=== PATIENT | male | born 1965 | race Caucasian/White ===

== ENCOUNTER 2017-02-26 18:58 | Emergency (ER) | payer MEDICARE ==
[~2017-02-26] VITALS: Ht 175.3 cm; Wt 127.0 kg
[~2017-02-26 18:58] MED LIST: CRESTOR5 MG; NEURONTIN600 MG; NOVOLOG100 UNITS/; PRINIVIL20 MG
[2017-02-26 21:09] LABS: STREPTOCOCCUS GRP A ANTIGEN POSITIVE (NEGATIVE)
[2017-02-26 21:46] LABS: INFLUENZAE A&B ANTIGEN (RAPID) NEGATIVE (NEGATIVE)
--- NOTE | 2017-02-26 22:20 | Diagnostic Imaging Report ---
EXAMINATION: CHEST 2 VIEWS INDICATION: Fever, cough COMPARISON: None FINDINGS: TUBES and LINES: None. LUNGS: Lungs are well inflated. Lungs are clear. There is no evidence of pneumonia or pulmonary edema. PLEURA: No pleural effusion or pneumothorax. HEART AND MEDIASTINUM: The cardiomediastinal silhouette is unremarkable. BONES AND SOFT TISSUES: No acute osseous lesion. Soft tissues are unremarkable. UPPER ABDOMEN: No free air under the diaphragm. IMPRESSION: No acute thoracic abnormality. Signed by: Dr. Enrique Stewart M.D. on 02/26/2017 10:17 PM
== END 2017-02-27 01:44 | disposition home or self-care (01) ==
LOC: ER 18:58
DX: R50.9 Fever, unspecified (principal); R05 Cough; J02.0 Streptococcal pharyngitis; I10 Essential (primary) hypertension; E11.9 Type 2 diabetes mellitus without complications
CPT/HCPCS: 71020; 83518; 87400; 99283

== ENCOUNTER → 2021-09-21 | Outpatient (CLI) | payer MEDICARE ==
[2021-09-21 09:13] LABS: CREATININE, SERUM 1.34 mg/dL (0.72-1.25)
== END ==
LOC: MRI 07:40
PROVIDERS: ATTEND Otolaryngology
DX: H90.3 Sensorineural hearing loss, bilateral (principal)
CPT/HCPCS: 36415; 82565; 84520